=== PATIENT | female | born 1955 ===

== ENCOUNTER 2018-03-02 00:46 | Emergency (ER) | payer MEDICAID ==
--- NOTE | 2018-03-02 01:48 | ED PDOC ---
HPI: Hypertension/Hypotension Time Seen by Provider: 03/02/18 01:00 Chief Complaint (Nursing): Palpitations Chief Complaint (Provider): palpitations History Per: Patient, Family History/Exam Limitations: no limitations Onset/Duration Of Symptoms: Hrs Current Symptoms Are (Timing): Better Quality Of Symptoms: Rapid Heart Rate Additional Complaint(s): 62 y/o female brought in by EMS for evaluation of palpitations, onset prior to arrival. Patient states she woke up from her sleep with her heart racing, states it has improved since arrival to ED. Patient reports taking Misoprostol Wednesday am and pm (400mcg each dose) prescribed by her Lease Analyst because she was scheduled to have a uterine biopsy Wednesday. Patient states when she got to the office they did not do the procedure because her blood pressure was too high. Patient reports feeling stressed due to this. Denies headache, dizziness, extremity numbness/weakness, chest pain, shortness of breath, abdominal pain, leg pain/swelling, recent travel. Past Medical History Reviewed: Historical Data, Nursing Documentation, Vital Signs Vital Signs: Last Vital Signs Temp Pulse 94 H 03/02/18 00:56 Resp 17 03/02/18 00:56 BP 199/107 H 03/02/18 00:56 Pulse Ox 97 03/02/18 00:56 - Medical History PMH: Asthma, Diabetes (Type II), HTN, Hypercholesterolemia, Migraine, Seizures ( epilepsy) - Family History Family History: States: Unknown Family Hx - Immunization History Hx Tetanus Toxoid Vaccination: No Hx Influenza Vaccination: No Hx Pneumococcal Vaccination: No - Home Medications Home Medications: Ambulatory Orders Medication Instructions Recorded Albuterol [Proventil] 0.09 mg IH BID 07/05/14 Lamotrigine [Lamictal] 30 mg PO TID 07/05/14 Losartan [Cozaar] 100 mg PO DAILY 07/05/14 Metformin Hydrochloride 500 mg PO BID 07/05/14 [Glucophage] Phenytoin Sodium Extended 200 mg PO TID 07/05/14 [Dilantin] traMADol/Acetaminophen [Ultracet 1 tab PO Q4 PRN #30 tab 07/05/14 325 MG-37.5 MG] - Allergies Allergies/Adverse Reactions: Allergies Allergy/AdvReac Type Severity Reaction Status Date / Time No Known Allergies Allergy Verified 08/22/15 17:42 Review of Systems ROS Statement: Except As Marked, All Systems Reviewed And Found Negative Cardiovascular: Positive for: Palpitations Physical Exam - Reviewed Nursing Documentation Reviewed: Yes Vital Signs Reviewed: Yes - Physical Exam Appears: Positive for: Well, Non-toxic, No Acute Distress Head Exam: Positive for: ATRAUMATIC, NORMAL INSPECTION, NORMOCEPHALIC Skin: Positive for: Normal Color Eye Exam: Positive for: Normal appearance ENT: Positive for: Normal ENT Inspection Cardiovascular/Chest: Positive for: Regular Rate, Rhythm Respiratory: Positive for: Normal Breath Sounds Gastrointestinal/Abdominal: Positive for: Normal Exam Back: Positive for: Normal Inspection Extremity: Positive for: Normal ROM Neurologic/Psych: Positive for: Alert, Oriented. 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 BP still elevated. CT head, accucheck, PO tylenol, PO clonidine ordered EXAM: CT Head Without Intravenous Contrast CLINICAL HISTORY: 62 years old, female; Pain; Headache; Additional info: Headache, dizziness TECHNIQUE: Axial computed tomography images of the head/brain without intravenous contrast. All CT scans at this facility use one or more dose reduction techniques, viz.: automated exposure control; ma/kV adjustment per patient size (including targeted exams where dose is matched to indication; i.e. head); or iterative reconstruction technique. 301 images are submitted. Axial images are submitted in soft tissue and bone windows. Coronal and sagittal reformatted images were created and reviewed. Axial reformatted images were created and reviewed. COMPARISON: CT - HEAD W/O CONTRAST 2015-08-22 19:16 FINDINGS: Brain: Cerebral and cerebellar volume loss. Patchy hypodensity is seen in the periventricular and subcortical white matter. There is right hemispheric encephalomalacia with ex vacuo dilatation of the temporal occipital horn of right lateral ventricle. No hemorrhage. Ventricles: Ventriculomegaly Bones/joints: Unremarkable. No acute fracture. Soft tissues: Fatty infiltration of parotid glands. Sinuses: Unremarkable. No acute sinusitis. Mastoid air cells: There is opacification of bilateral mastoid air cells with hazy density around the ossicles representing bilateral savi-mastoid disease. Orbits: The globes are intact. IMPRESSION: No evidence of an acute intracranial hemorrhage, midline shift or mass effect is identified. On re-eval, patient sleeping. Upon awakening, states headache and dizziness resolved. BP improved. Case discussed with ED attending Dr. Muniz, agrees with plan to d/c and f/up outpatient. Patient educated on findings, discharged with instructions to follow up with PMD 2-3 days. Return precautions given Disposition - Clinical Impression Clinical Impression: Palpitations, HTN (hypertension), Dizziness, Headache - Patient ED Disposition Is Patient to be Admitted: No Counseled Patient/Family Regarding: Studies Performed, Diagnosis, Need For Followup - Disposition Referrals: Jackson Head MD [Primary Care Provider] - Disposition: Routine/Home Disposition Time: 05:53 Condition: IMPROVED Instructions: High Blood Pressure in Adults, Headache, Adult, Palpitations Forms: [facility] (Hong Konger) Print Language: ALBANIAN
[2018-03-02 02:37] LABS: BASO % 0.4 % (0.0-2.0); EOS # 0.1 K/uL (0.0-0.7); EOS % 2.2 % (0.0-4.0); HEMOGLOBIN 13.7 g/dL (12.0-16.0); LYMPH # 2.9 K/uL (1.0-4.3); LYMPH % 44.4 % (20.0-40.0); MEAN CELL VOLUME 90.8 fl (81.0-99.0); MEAN CORPUSCULAR HEMOGLOBIN 30.6 pg (27.0-31.0); MEAN CORPUSCULAR HGB CONC 33.7 g/dL (33.0-37.0); MONO # 0.6 K/uL (0.0-0.8); MONO % 8.5 % (0.0-10.0); NEUT # 2.9 K/uL (1.8-7.0); NEUT % 44.5 % (50.0-75.0); NRBC % 0.1 % (0.0-0.0); RBC 4.47 Mil/uL (3.80-5.20); RED CELL DISTRIBUTION WIDTH 13.1 % (11.5-14.5); WHITE BLOOD COUNT 6.6 K/uL (4.8-10.8)
[2018-03-02 02:47] LABS: ALB/GLOB RATIO 1.2 (1.0-2.1); ALBUMIN 4.4 g/dL (3.5-5.0); ALT/SGPT 48 U/L (9-52); AST/SGOT 41 U/L (14-36); BLOOD UREA NITROGEN 20 mg/dl (7-17); CALCIUM 9.8 mg/dL (8.4-10.2); GFR AFRICAN-AMERICAN > 60; GFR NON-AFRICAN AMERICAN > 60
--- NOTE | 2018-03-02 05:29 | CT ---
EXAM: CT Head Without Intravenous Contrast CLINICAL HISTORY: 62 years old, female; Pain; Headache; Additional info: Headache, dizziness TECHNIQUE: Axial computed tomography images of the head/brain without intravenous contrast. All CT scans at this facility use one or more dose reduction techniques, viz.: automated exposure control; ma/kV adjustment per patient size (including targeted exams where dose is matched to indication; i.e. head); or iterative reconstruction technique. 301 images are submitted. Axial images are submitted in soft tissue and bone windows. Coronal and sagittal reformatted images were created and reviewed. Axial reformatted images were created and reviewed. COMPARISON: CT - HEAD W/O CONTRAST 2015-08-22 19:16 FINDINGS: Brain: Cerebral and cerebellar volume loss. Patchy hypodensity is seen in the periventricular and subcortical white matter. There is right hemispheric encephalomalacia with ex vacuo dilatation of the temporal occipital horn of right lateral ventricle. No hemorrhage. Ventricles: Ventriculomegaly Bones/joints: Unremarkable. No acute fracture. Soft tissues: Fatty infiltration of parotid glands. Sinuses: Unremarkable. No acute sinusitis. Mastoid air cells: There is opacification of bilateral mastoid air cells with hazy density around the ossicles representing bilateral savi-mastoid disease. Orbits: The globes are intact. IMPRESSION: No evidence of an acute intracranial hemorrhage, midline shift or mass effect is identified.
[2018-03-02 05:52] VITALS: BP 138/91; PULSE 83; TEMP 98.2
[2018-03-02 05:54] VITALS: O2SAT 97
[2018-03-02 06:11] VITALS: RESP 17
--- NOTE | 2018-03-02 18:04 | CARD ---
APPROVED REPORT EKG Measurement Heart [id number] MD [id number] <Conclusion> Normal sinus rhythm Possible Left atrial enlargement Septal infarct, age undetermined Abnormal ECG
== END 2018-03-02 06:11 | disposition home or self-care (01) ==
LOC: H.ER 00:46
DX: R00.2 Palpitations (principal); I10 Essential (primary) hypertension; R42 Dizziness and giddiness; R51 Headache; E11.9 Type 2 diabetes mellitus without complications; E78.00 Pure hypercholesterolemia, unspecified; G40.909 Epilepsy, unspecified, not intractable, without status epilepticus; J45.909 Unspecified asthma, uncomplicated

== ENCOUNTER 2018-03-24 11:32 | Emergency (ER) | payer MEDICAID ==
[2018-03-24 11:42] VITALS: PULSE 76; RESP 16; TEMP 98; O2SAT 97
--- NOTE | 2018-03-24 12:41 | ED PDOC ---
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 Pt without complaints, compliant with Losartan. Denies [place], CP, SOB, paresthesias, weakness. Past Medical History Reviewed: Nursing Documentation, Vital Signs Vital Signs: Last Vital Signs Temp 98.0 F 03/24/18 11:37 Pulse 76 03/24/18 11:37 Resp 16 03/24/18 11:37 BP 172/83 H 03/24/18 11:37 Pulse Ox 97 03/24/18 11:37 - Medical History PMH: Asthma, Diabetes (Type II), HTN, Hypercholesterolemia, Migraine, Seizures ( epilepsy) - Surgical History Surgical History: Appendectomy, Cholecystectomy - Family History Family History: States: Unknown Family Hx - Social History Current smoker - smoking cessation education provided: No Alcohol: None - Immunization History Hx Tetanus Toxoid Vaccination: No Hx Influenza Vaccination: No Hx Pneumococcal Vaccination: No - Home Medications Home Medications: Ambulatory Orders Medication Instructions Recorded Albuterol [Proventil] 0.09 mg IH BID 07/05/14 Lamotrigine [Lamictal] 30 mg PO TID 07/05/14 Losartan [Cozaar] 100 mg PO DAILY 07/05/14 Metformin Hydrochloride 500 mg PO BID 07/05/14 [Glucophage] Phenytoin Sodium Extended 200 mg PO TID 07/05/14 [Dilantin] traMADol/Acetaminophen [Ultracet 1 tab PO Q4 PRN #30 tab 07/05/14 325 MG-37.5 MG] - Allergies Allergies/Adverse Reactions: Allergies Allergy/AdvReac Type Severity Reaction Status Date / Time No Known Allergies Allergy Verified 08/22/15 17:42 Review of Systems Constitutional: Negative for: Fever, Chills Eyes: Negative for: Vision Change Cardiovascular: Negative for: Chest Pain, Palpitations Respiratory: Negative for: Cough, Shortness of Breath Gastrointestinal: Negative for: Nausea, Vomiting, Abdominal Pain, Diarrhea Genitourinary Female: Negative for: Dysuria, Hematuria Musculoskeletal: Negative for: Neck Pain, Back Pain Skin: Negative for: Rash, Lesions Neurological: Negative for: Weakness, Numbness, Headache, Dizziness Physical Exam - Reviewed Nursing Documentation Reviewed: Yes Vital Signs Reviewed: Yes - Physical Exam Appears: Positive for: Well, No Acute Distress Head Exam: Positive for: ATRAUMATIC, NORMAL INSPECTION Skin: Positive for: Normal Color, Warm, Dry Eye Exam: Positive for: Normal appearance, EOMI, PERRL Cardiovascular/Chest: Positive for: Regular Rate, Rhythm Respiratory: Positive for: Normal Breath Sounds Neurologic/Psych: 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 Negative for: Motor/Sensory Deficits, Facial Droop - ECG O2 Sat by Pulse Oximetry: 97 Medical Decision Making Medical Decision Makin yo with asymptomatic BP. - discharge Pt evaluated by Dr. Head in ED, agrees with discharge home. Disposition - Clinical Impression Clinical Impression: HTN (hypertension) - Disposition Referrals: Jackson Head MD [Staff Provider] - Disposition: Routine/Home Disposition Time: 12:41 Condition: STABLE Instructions: High Blood Pressure in Adults Forms: [facility] (Kosovan) Print Language: WEL[place]
[2018-03-24 12:43] VITALS: BP 155/84
== END 2018-03-24 12:50 | disposition home or self-care (01) ==
LOC: H.ER 11:32
DX: I10 Essential (primary) hypertension (principal)